=== PATIENT | female | born 1955 | race Caucasian/White ===

== ENCOUNTER 2018-10-28 20:48 | Emergency (ER) | payer OTHER ==
[~2018-10-28] VITALS: Ht 154.9 cm; Wt 62.6 kg
[2018-10-28 20:52] VITALS: Ht 154.9 cm; Wt 62.6 kg
[2018-10-29] MEDS ORDERED: HYDROCODONE/APAP (10/325) TAB PO ONE ×2 (00:30→02:00)
[2018-10-29] MEDS ORDERED: NALO4SPR NS (01:55)
[2018-10-29] MEDS ORDERED: HYDR-3980 PO (01:55)
[2018-10-29] MEDS ORDERED: IBUP-1542 PO (01:55)
--- NOTE | 2018-10-29 02:10 | ERD ---
ER Documentation Chief Complaint Chief Complaint L ANKLE, COCCYX PAIN S/P FALL HPI 63-year-old female presented to ED for a slip and fall. Patient did not lose consciousness did not hit her head she can recall the entire events. Patient states that her ankle rolled during the event and that she has back pain and a nkle pain. Patient states the back pain is only minimum but the ankle pain is a 10 out of 10. Patient denies any past medical history. She denies any allergies to medications. Patient is unable to ambulate on the extremity and she is presenting in a wheelchair ROS All systems reviewed and are negative except as per history of present illness. Medications Home Meds Active Scripts Ibuprofen* (Motrin*) 600 Mg Tab, 600 MG PO Q6, #30 TAB Prov:LUISITO PALMER PA-C 10/29/18 Naloxone HCl nasal spray (Narcan 4 mg/0.1 mL nasal) 4 Mg Adah, 4 MG NS .Q2-3MIN for OPIOID OVERDOSE, #2 SPRAY 0 Refills Adah 0.1 mL into one nostril. Repeat with second device into other nostril after 2-3 minutes if no or minimal response Prov:LUISITO PALMER PA-C 10/29/18 Hydrocodone/Acetaminophen ([place] 10-325 Tablet) 1 Each Tablet, 1 TAB PO Q6H PRN for PAIN, #10 TAB Prov:LUISITO PALMER PA-C 10/29/18 Allergies Allergies: Coded Allergies: No Known Allergy (Unverified , 11/30/12) PMhx/Soc History of Surgery: No Anesthesia Reaction: No Hx Neurological Disorder: No Hx Respiratory Disorders: No Hx Cardiac Disorders: No Hx Psychiatric Problems: No Hx Miscellaneous Medical Probl: No Hx Alcohol Use: No Hx Substance Use: No Hx Tobacco Use: No Smoking Status: Never smoker FmHx Family History: No diabetes, No coronary disease, No other Physical Exam Vitals Vital Signs Date Temp Pulse Resp B/P (MAP) Pulse Ox O2 O2 Flow FiO2 Time Delivery Rate 10/28/18 99.6 84 18 179/89 98 20:52 (119) Physical Exam GENERAL: Moderate distress CHEST: Clear to auscultation bilaterally. There are no rales, wheezes or rhonchi. HEART: Regular rate and rhythm. No murmurs, clicks, rubs or gallops. ABDOMEN:Soft, nontender and nondistended. Good bowel sounds. No rebound or guarding. No gross peritonitis. No gross organomegaly or masses. No Chi sign or McBurney point tenderness. BACK: No midline or flank tenderness. EXTREMITIES: Patient has obvious swelling, contusion to left lower extremity, equal pulses bilaterally, patient has good motor function and is able to wiggle her toes in the left lower extremity. Patient has good sensation in the left lower extremity. No signs of open fracture. Patient has pain on palpation in the lateral aspect of her ankle Results 24 hrs Current Medications Medications Dose Sig/Gus Start Time Status Last (Trade) Ordered Route PRN Stop Time Admin Dose Reason Admin 1 tab ONCE ONCE 10/29/18 DC 10/29/18 Acetaminophen PO 00:30 10/29/18 00:19 / 00:31 Hydrocodone Bitart ([place] (10/325)) 1 tab ONCE ONCE 10/29/18 DC Acetaminophen PO 02:00 10/29/18 / 02:01 Hydrocodone Bitart ([place] (10/325)) Procedures/MDM ED course: [place] X-ray Splint application The patient was stable throughout the ED course. The patient and/or family informed of laboratory and diagnostic imaging results throughout the ED course. Diagnostic imaging: Read by radiologist Joni Renner MD ROCEDURE: XR Ankle. CLINICAL INDICATION: Left ankle pain. TECHNIQUE: Three views of the left ankle. COMPARISON: None available. FINDINGS: There is a partially displaced oblique fracture of the distal fibular diaphysis. A fracture of the posterior malleolus is also identified. The anterior and medial tibiotalar joint spaces are widened.. The ankle mortise appears intact in this nonstressed study. There is a dorsal calcaneal enthesophyte. There is soft tissue swelling around the ankle. IMPRESSION: Fractures of the distal fibular diaphysis and posterior malleolus. Widening of the anterior and medial tibiotalar joint spaces, suggestive of ligamentous injury. PROCEDURE: XR Foot. CLINICAL INDICATION: Pain. TECHNIQUE: Three views of the left foot. COMPARISON: Left ankle x-rays performed concurrently. FINDINGS: There is no fracture dislocation of the foot. Fractures of the distal fibular diaphysis and posterior malleolus are noted. The appendix is not identified. There is soft tissue swelling around the ankle. IMPRESSION: No fracture or dislocation of the left foot. PROCEDURE: XR Tibia and Fibula. CLINICAL INDICATION: Pain. TECHNIQUE: AP and lateral views of the left tibia and fibula. COMPARISON: None available. FINDINGS: There are fractures of the distal fibular diaphysis and posterior malleolus. The joint spaces are preserved There is soft tissue swelling in the region of the fractures. IMPRESSION: Fractures of the distal fibular diaphysis and posterior malleolus. Medications given in ER: [place] Patient tolerated medication well with no adverse reactions. Patient reported improvement in pain. SPLINT APPLICATION: The patient was verbally consented at bedside prior to splint application. Patient was explained the risks, benefits and alternatives to this procedure. The patient was neurovascularly intact prior to and status post application of the splint. The patient tolerated the procedure well with no complications. Splint type: Posterior short leg Extremity: Left lower Indication: Left fibula fracture, left posterior malleolus fracture I discussed with the patient/family that at anytime if the splint becomes too constricted or if they have loss of sensation, or unable to move any limbs distal to the splint, develop fever, or any discomfort that they should eturn to the ER immdiatly. I educated the patient on risk of compartment syndrome with splint applications. Medical decision makin-year-old female presented to ED for left leg pain and left back pain secondary to a fall. Patient's physical exam revealed a swollen tender to pal pation left lower extremity patient has good pulse motor sensation in the extremity. Patient's lower back had no crepitus, deformity, contusions abrasions. Patient states the left lower leg pain is what is hurting her the most. Patient denies loss of consciousness. Patient tripped and fell and did not hit her head. She was given [place] for pain management. Patient was sent for an x-ray of the left lower extremity which revealed fracture to the left fibula and left posterior malleolus with widening joint space. Patient's leg was immobilized in a posterior short leg splint patient remained neurovascular intact prior to splint placement and was reevaluated after splint placement and no deficits were noted. At this time I have low suspicion for neurovascular injury, compartment syndrome, osteomyelitis, open fracture. I discussed the results with the patient and indicated that she needs to follow-up with an visual specialist regarding this fracture due to the location. The patient was given crutches and instructed how to properly use them. On reevaluation of pain the patient states improvement in pain with the splint and [place]. I instructed the patient symptoms to look out for such as compartment syndrome if she has constriction in the extremity unable to feel her toes extreme pain that she should return to the ED immediately. Patient was given a copy of x-rays on CD to bring for her follow-up care. Patient was advised if symptoms worsen return to the ED immediately. Patient will be sent home with a prescription with [place] and naloxone and ibuprofen. Tomorrow is a holiday and she will not be able to get into a provider so I thought it was appropriate to send patient home with narcotics for pain management. All questions were answered prior to discharge and patient is in agreement to the treatment plan she plans to call her primary care provider to try and get with and with an visual specialist if not she is going to call one of the resources I provided her with. The patient and her are in agreement to the treatment plan Prescription for home: [place] Nalaxone Ibuprofen Discharge: At this time, patient is stable for discharge and outpatient management. I have instructed the patient to follow-up with his\her primary care physician in 1 to 2 days. I have discussed with the patient the possibility of needing to see a specialist for further work-up and imaging studies if symptoms persist. I have instructed the patient to promptly return to the ER for any new or worsening symptoms including increased pain, fever, nausea, vomiting, weakness or LOC. The patient and\or family expressed understanding of and agreement with this plan. All questions were answered. Home care instructions were provided. Disclaimer: Inadvertent spelling and grammatical errors are likely due to EHR\dictation software use and do not reflect on the overall quality of patient care. Also, please note that the electronic time recorded on the note does not necessarily reflect the actual time of the patient encounter. Departure Diagnosis: Primary Impression: Fracture of distal end of fibula Encounter type: initial encounter Fracture type: closed Fracture morphology: unspecified fracture morphology Laterality: unspecified laterality Qualified Codes: S82.839A - Other fracture of upper and lower end of unspecified fibula, initial encounter for closed fracture Additional Impression: Fracture of posterior malleolus Encounter type: initial encounter Fracture type: closed Laterality: unspecified laterality Qualified Codes: S82.399A - Other fracture of lower end of unspecified tibia, initial encounter for closed fracture Condition: Stable Patient Instructions: Ankle Fracture (Distal Fibula), Closed Referrals: WILLIAM PHILLIPS MD,QUANG RAMOS MD, MD [facility] YOU HAVE RECEIVED A MEDICAL SCREENING EXAM AND THE RESULTS INDICATE THAT YOU DO NOT HAVE A CONDITION THAT REQUIRES URGENT TREATMENT IN THE EMERGENCY DEPARTMENT. FURTHER EVALUATION AND TREATMENT OF YOUR CONDITION CAN WAIT UNTIL YOU ARE SEEN IN YOUR DOCTORS OFFICE WITHIN THE NEXT 1-2 DAYS. IT IS YOUR RESPONSIBILITY TO MAKE AN APPOINTMENT FOR FOLOW-UP CARE. IF YOU HAVE A PRIMARY DOCTOR --you should call your primary doctor and schedule an appointment IF YOU DO NOT HAVE A PRIMARY DOCTOR YOU CAN CALL OUR PHYSICIAN REFERRAL HOTLINE AT IF YOU CAN NOT AFFORD TO SEE A PHYSICIAN YOU CAN CHOSE FROM THE FOLLOWING [facility] [address] [facility] [address] [facility] [address] [facility] [address] [facility] [address] [facility] [facility] [address] [facility] [facility] [facility] YOU HAVE RECEIVED A MEDICAL SCREENING EXAM AND THE RESULTS INDICATE THAT YOU DO NOT HAVE A CONDITION THAT REQUIRES URGENT TREATMENT IN THE EMERGENCY DEPARTMENT. FURTHER EVALUATION AND TREATMENT OF YOUR CONDITION CAN WAIT UNTIL YOU ARE SEEN IN YOUR DOCTORS OFFICE WITHIN THE NEXT 1-2 DAYS. IT IS YOUR RESPONSIBILITY TO MAKE AN APPOINTMENT FOR FOLOW-UP CARE. IF YOU HAVE A PRIMARY DOCTOR --you should call your primary doctor and schedule and appointment IF YOU DO NOT HAVE A PRIMARY DOCTOR YOU CAN CALL OUR PHYSICIAN REFERRAL HOTLINE AT . IF YOU CAN NOT AFFORD TO SEE A PHYSICIAN YOU CAN CHOSE FROM THE FOLLOWING [facility] INSTITUTIONS: [facility] [address] [place] [address] [facility] [address] [place] [address] [facility] [address] [place] [address] Additional Instructions: If you experience increased pain, constriction in the splint, inability to feel or wiggle your toes in the extremity that is splinted return to the ER immediately. You will need to call your primary care provider to get him with an visual specialist within the next week. I am providing you with a list of visual specialist in the packet if you cannot get into another doctor called him immediately LUISITO PALMER PA-C Oct 29, 2018 02:10
[2018-10-29 02:40] VITALS: BP 119/87; PULSE 77; RESP 18
== END 2018-10-29 02:54 | disposition home or self-care (01) ==
LOC: FTE 20:48
DX: S82.839A Other fracture of upper and lower end of unspecified fibula, initial encounter for closed fracture (principal); S82.399A Other fracture of lower end of unspecified tibia, initial encounter for closed fracture; W01.10XA Fall on same level from slipping, tripping and stumbling with subsequent striking against unspecified object, initial encounter; Y92.9 Unspecified place or not applicable
CPT/HCPCS: 73590; 73610